=== PATIENT | female | born 1970 | race Caucasian/White ===

== ENCOUNTER 2017-01-04 07:17 | Emergency (ER) | payer BC, OTHER ==
[~2017-01-04] VITALS: Ht 157.5 cm; Wt 63.5 kg
[2017-01-04 08:12] LABS: URINE BLOOD NEGATIVE (Negative); URINE COLOR YELLOW; URINE GLUCOSE-RANDOM* NEGATIVE (Negative); URINE KETONES TRACE (Negative); URINE NITRITE NEGATIVE (Negative); URINE PROTEIN (DIPSTICK) TRACE (Negative); URINE SPECIFIC GRAVITY 1.025 (1.003-1.035); URINE UROBILINOGEN 0.2 E.U./dl (0.2-1.0)
[2017-01-04 08:15] LABS: ICTOTEST (BILI CONFIRMATORY) Negative (Negative); URINE BILIRUBIN NEGATIVE (Negative)
[2017-01-04 08:19] LABS: HEMATOCRIT 36.3 % (37.0-47.0); HEMOGLOBIN 12.5 gm/dL (12.0-15.0); MCH 31.8 pg (26.0-34.0); MCHC 34.5 g/dL (28.0-37.0); MCV 92.1 fL (80.0-100.0); PLATELET COUNT 192 thou/uL (150-400); RBC 3.95 mil/uL (4.20-5.00); RDW 12.9 % (10.5-14.5); WBC 2.3 thou/uL (4.0-11.0)
[2017-01-04] MEDS ORDERED: LEVOTHYROXIN0.075 MG PO (08:20)
[2017-01-04 08:21] LABS: MANUAL DIFF YES
[2017-01-04 08:27] LABS: CALCIUM 8.1 mg/dL (8.5-10.1); POTASSIUM 3.8 mmol/L (3.5-5.1)
[2017-01-04 08:51] LABS: ABSOLUTE NEUTROPHILS 1.7 thou/uL (1.4-8.2); ANISOCYTOSIS SLIGHT; TOTAL CELL COUNT 100
[2017-01-04] MEDS ORDERED: ZOFRAN ODT8 MG PO (09:33)
[2017-01-04] MEDS ORDERED: NORCO 5-325 TA1 EACH PO (09:33)
[2017-01-04] MEDS ORDERED: GAS-X180 MG PO (09:33)
[2017-01-04 10:27] VITALS: BP 108/63
== END 2017-01-04 10:34 | disposition home or self-care (01) ==
LOC: ER 07:17 → EDBD 07:17 → ER 10:34
PROVIDERS: Emergency Medicine
DX: M54.5 Low back pain (principal); Z98.890 Other specified postprocedural states; Z88.5 Allergy status to narcotic agent; Z88.8 Allergy status to other drugs, medicaments and biological substances